=== PATIENT | male | born 1965 | race African-American/Black ===

== ENCOUNTER 2016-12-28 14:02 | Inpatient (IN) | payer OTHER ==
[2016-12-28 16:27] VITALS: BMI 21.2
--- NOTE | 2016-12-28 17:25 | HP ---
CIWA Score - CIWA Score Nausea/Vomitin Muscle Tremors: 3 Anxiety: 3 Agitation: 3 Paroxysmal Sweats: 2 Orientation: 0-Oriented Tacttile Disturbances: 2-Mild Itch/Numbness/Burn Auditory Disturbances: 2-Mild Harshness/Frighten Visual Disturbances: 2-Mild Sensitivity Headache: 2-Mild CIWA-Ar Total Score: 22 Admission ROS BHS - HPI Chief Complaint: I NEED HELP TO STOP DRINKING ALCOHOL AND COCAINE Allergies/Adverse Reactions: Allergies Allergy/AdvReac Type Severity Reaction Status Date / Time No Known Allergies Allergy Verified 12/28/16 17:08 History of Present Illness: THIS 51 YEARS OLD MALE WITH ALCOHOL AND COCAINE DEPENDENCE,SEEKING DETOX,LAST TREATMENT 2015 ARM AND ACRES LOW BACK PAIN WEIGHT LOSS DEPRESSION NICOTINE EPENDENCE LONGEST PERIOD OF SOBRIETY 5 YEARS Exam Limitations: No Limitations - Ebola screening Have you traveled outside of the country in the last 21 days: No Have you been sick,other than usual withdrawal symptoms: No - Review of Systems Constitutional: Chills, Loss of Appetite, Malaise, Night Sweats, Changes in sleep, Weakness, Unintentional Wgt. Loss EENT: reports: Tearing, Nose Congestion Respiratory: reports: No Symptoms reported Cardiac: reports: No Symptoms Reported GI: reports: Diarrhea, Nausea, Vomiting, Abdominal cramping : reports: No Symptoms Reported Musculoskeletal: reports: Back Pain, Joint Pain, Muscle Pain, Joint Stiffness Integumentary: reports: Dryness Neuro: reports: Headache, Tremors Endocrine: reports: No Symptoms Reported Hematology: reports: No Symptoms Reported Psychiatric: reports: Depressed Patient History - Patient Medical History Hx Anemia: No Hx Asthma: No Hx Chronic Obstructive Pulmonary Disease (COPD): No Hx Cancer: No Hx Cardiac Disorders: No Hx Congestive Heart Failure: No Hx Hypertension: No Hx Hypercholesterolemia: No Hx Pacemaker: No HX Cerebrovascular Accident: No Hx Seizures: No Hx Diabetes: No Hx Gastrointestinal Disorders: No Hx Liver Disease: No Hx Genitourinary Disorders: No Hx Sexually Transmitted Disorders: Yes (Hx of gonnorhea.) Hx Renal Disease (ESRD): No Hx Thyroid Disease: No Hx Human Immunodeficiency Virus (HIV): No (LAST 2015) Hx Hepatitis C: No Hx Depression: Yes (NO MED) Hx Suicide Attempt: No Hx Bipolar Disorder: No Hx Schizophrenia: No Other Medical History: NO SUICIDAL,NO HOMICIDAL,FX OF RIGHT LEG - Patient Surgical History Past Surgical History: No - PPD History Previous Implant?: Yes Documented Results: Positive w/o proof Implanted On Prior [facility] Admission?: No PPD to be Administered?: No - Smoking Cessation Smoking history: Current some day smoker Have you smoked in the past 12 months: Yes Aproximately how many cigarettes per day: 20 Hx Chewing Tobacco Use: No Initiated information on smoking cessation: Yes 'Breaking Loose' booklet given: 12/28/16 - Substance & Tx. History Hx Alcohol Use: Yes Hx Substance Use: Yes Substance Use Type: Alcohol, Cocaine Hx Substance Use Treatment: Yes (LAST TREATMENT 2016 ARMS AND ACRES) - Substances Abused Alcohol Route: Oral Frequency: Daily Amount used: 2-3 PINTS Age of first use: 16 Date of Last Use: 12/27/16 Crack Route: Smoking Frequency: Daily Amount used: $150 Age of first use: 29 Date of Last Use: 12/26/16 Family Disease History - Family Disease History Family History: Denies Admission Physical Exam BHS - Vital Signs Vital Signs: Vital Signs - 24 hr 12/28/16 16:25 Temperature 97.3 F L Pulse Rate 66 Respiratory 20 Rate Blood Pressure 106/62 - Physical General Appearance: Yes: Moderate Distress, Tremorous, Irritable, Sweating, Anxious HEENTM: Yes: Normal ENT Inspection, [place], Pharynx Normal Respiratory: Yes: Lungs Clear, Normal Breath Sounds, No Respiratory Distress Neck: Yes: Within Normal Limits, Supple, Trachea in good position Breast: Yes: Within Normal Limits Cardiology: Yes: Within Normal Limits, Regular Rhythm, Regular Rate, S1, S2 Abdominal: Yes: Within Normal Limits, Normal Bowel Sounds, Non Tender, Flat, Soft Genitourinary: Yes: Within Normal Limits Back: Yes: Muscle Spasm Musculoskeletal: Yes: Back pain, Joint Stiffness, Muscle Pain Extremities: Yes: Within Normal Limits, Normal Range of Motion, Tremors Neurological: Yes: ballpoint pens assembler II-XII NML intact, Fully Oriented, Motor Strength 5/5 Integumentary: Yes: Dry Lymphatic: Yes: Within Normal Limits - Diagnostic (1) Alcohol dependence with uncomplicated withdrawal Current Visit: Yes Status: Chronic (2) Cocaine dependence Current Visit: Yes Status: Chronic Qualifiers: Substance use status: uncomplicated Qualified Code(s): F14.20 - Cocaine dependence, uncomplicated; F14.20 - Cocaine dependence, uncomplicated; F14.20 - Cocaine dependence, uncomplicated (3) Weight loss Current Visit: Yes Status: Acute (4) Low back pain Current Visit: Yes Status: Chronic Qualifiers: Chronicity: chronic Back pain laterality: unspecified (5) Fracture of right lower leg Current Visit: Yes Status: Resolved (6) Depression Current Visit: Yes Status: Acute Cleared for Admission S - Detox or Rehab [facility] Level of Care: Medically Managed Detox Regimen/Protocol: Librium S Breath Alcohol Content Breath Alcohol Content: 0 Urine Drug Screen - Results Drug Screen Negative: No Urine Drug Screen Results: HAMZAH-Cocaine
[2016-12-28] MEDS ORDERED: chlordiazePOXIDE HCL 25 MG CAPSULE PO ONE (17:36)
[2016-12-28] MEDS ORDERED: guaiFENesin/D-METHORPHAN HB 10 ML UNIT-DOSE CUPS PO PRN (17:36)
[2016-12-28] MEDS ORDERED: hydrOXYzine PAMOATE 25 MG CAPSULE (FP) PO PRN (17:36)
[2016-12-28] MEDS ORDERED: diphenhydrAMINE HCL 50 MG CAPSULE PO PRN (17:36)
[2016-12-28] MEDS ORDERED: MAGNESIUM CITRATE 300 ML BOTTLE PO PRN (17:36)
[2016-12-28] MEDS ORDERED: LOPERAMIDE HCL 2 MG CAPSULE PO PRN (17:36)
[2016-12-28] MEDS ORDERED: P-EPHED 60MG/TRIPROLIDI 2.5MG TABLET PO PRN (17:36)
[2016-12-28] MEDS ORDERED: MAGNESIUM HYDROX 2400MG/30ML ORAL SUSPENSION 30 ML CUP PO PRN (17:36)
[2016-12-28] MEDS ORDERED: ACETAMINOPHEN 325 MG TABLET (FP) PO PRN (17:36)
[2016-12-28] MEDS ORDERED: chlordiazePOXIDE HCL 25 MG CAPSULE PO PRN (17:36)
[2016-12-28] MEDS ORDERED: IBUPROFEN 400 MG TABLET (FP) PO PRN (17:36)
[2016-12-28 20:55] LABS: URINE APPEARANCE CLEAR; URINE BILIRUBIN NEGATIVE (NEGATIVE); URINE BLOOD NEGATIVE (NEGATIVE); URINE COLOR AMBER; URINE GLUCOSE (UA) NEGATIVE (NEGATIVE); URINE KETONE NEGATIVE (NEGATIVE); URINE LEUK ESTERASE NEGATIVE (NEGATIVE); URINE NITRITE NEGATIVE (NEGATIVE); URINE UROBILINOGEN 4.0 E.U/dl mg/dL (0.2-1.0)
[2016-12-28 20:59] LABS: URINE PROTEIN 1+ (NEGATIVE)
[2016-12-28 21:08] LABS: URINE RBC 1 /hpf (0-3); URINE WBC 3 /hpf (3-5)
[2016-12-28] MEDS: MAG HYDROX/AL HYDROX/SIMETH 30 ML UNIT-DOSE CUP PO PRN (22:35)
[2016-12-28] MEDS: THIAMINE HCL 100 MG TABLET (FP) PO SCH (22:35)
[2016-12-28] MEDS: chlordiazePOXIDE HCL 25 MG CAPSULE PO SCH (22:35)
[2016-12-29] MEDS: chlordiazePOXIDE HCL 25 MG CAPSULE PO SCH ×4 (05:49→22:22)
[2016-12-29 10:10] LABS: MCH 25.3 pg (25.7-33.7); MCHC 33.6 g/dl (32.0-35.9); MEAN CELL VOLUME 75.2 fl (80-96); RDW 15.1 % (11.9-15.9)
--- NOTE | 2016-12-29 10:18 | PN ---
[facility] CIWA - CIWA Score Nausea/Vomitin-No Nausea/No Vomiting Muscle Tremors: 4-Moderate,w/Arms Extend Anxiety: 3 Agitation: 4-Moderately Restless Paroxysmal Sweats: 3 Orientation: 0-Oriented Tacttile Disturbances: 0-None Auditory Disturbances: 0-None Visual Disturbances: 0-None Headache: 0-None Present CIWA-Ar Total Score: 14 BHS Progress Note (SOAP) Subjective: sweats shakes interrupted sleep sore throat d/t vomiting yesterday Objective: 12/29/16 10:20 Vital Signs Temperature 98.0 12/29/16 10:00 Pulse Rate 87 12/29/16 10:00 Respiratory Rate 20 12/29/16 10:00 Blood Pressure 123/70 12/29/16 10:00 O2 Sat by Pulse Oximetry (%) Laboratory Tests 12/28/16 18:48 Urine Color Yadira Urine Appearance Clear Urine pH 6.0 Ur Specific [place] 1.020 Urine Protein 1+ H Urine Glucose (UA) Negative Urine Ketones Negative Urine Blood Negative Urine Nitrite Negative Urine Bilirubin Negative Urine Urobilinogen 4.0 e.u/dl Urine RBC 1 Urine WBC 3 Ur Epithelial Cells Rare labs pending awake/alert ambulating no acute distress Assessment: 12/29/16 10:22 withdrawal sx saundra throat noted Plan: continue detox increase fluids throat lozenges
[2016-12-29] MEDS: PRENATAL VITAMINS W/ FOLIC ACID TABLET (FP) PO SCH (10:21)
[2016-12-29] MEDS: MENTHOL/PHENOL 1 EACH UD MM PRN ×2 (10:24→22:22)
[2016-12-29 10:29] LABS: MEAN PLT VOLUME 8.8 fl (7.5-11.1)
--- NOTE | 2016-12-29 11:10 | CONSULT ---
[facility] Psychiatric Consult - Data Date of interview: 12/29/16 Admission source: [facility] Identifying data: The pstient is 51 years old AA single undomiciled male supported by PA is seeking alcohol and cocaine detox. Substance Abuse History: Patient reports drinking since 16 years old 2-3 six packs daily,coacine/crack since 29 years old,spending $100 daily. Medical History: Significant for low back pain,h/o L leg fracture. Psychiatric History: patient reports history of depression,anxiety for about 20 years.He was dx with MDD a few years ago.Denies any suicidality,no previous psychiatric admissions.No recent psychiatric follow up.He stopped taking zoloft which he found being very helpful in the past.Reports feeling depressed and willing to restart zoloft 50 mg po daily . Physical/Sexual Abuse/Trauma History: denies Mental Status Exam - Mental Status Exam Alert and Oriented to: Time, Place, Person Cognitive Function: Grossly Intact Patient Appearance: Unkempt Mood: Sad Affect: Mood Congruent, Constricted Patient Behavior: Appropriate, Cooperative Speech Pattern: Clear Voice Loudness: Normal Thought Process: Goal Oriented Thought Disorder: Not Present Hallucinations: Denies Suicidal Ideation: Denies Homicidal Ideation: Denies Insight/Judgement: Fair Sleep: Fair Appetite: Fair Muscle strength/Tone: Normal Gait/Station: Normal Psychiatric Findings - Problem List ([place] 1, 2,3) (1) Fracture of right lower leg Current Visit: Yes Status: Resolved (2) Low back pain Current Visit: Yes Status: Chronic Qualifiers: Chronicity: chronic Back pain laterality: unspecified (3) Alcohol dependence with uncomplicated withdrawal Current Visit: Yes Status: Chronic (4) Cocaine dependence Current Visit: Yes Status: Chronic Qualifiers: Substance use status: uncomplicated Qualified Code(s): F14.20 - Cocaine dependence, uncomplicated; F14.20 - Cocaine dependence, uncomplicated; F14.20 - Cocaine dependence, uncomplicated (5) Substance induced mood disorder Current Visit: Yes Status: Chronic - Initial Treatment Plan Initial Treatment Plan: Restart zoloft 50 mg po daily. will monitor progress.
[2016-12-29 11:22] LABS: ALBUMIN 3.2 g/dl (3.4-5.0); ALK PHOS 104 U/L (45-117); ANION GAP 7 (8-16); BILIRUBIN,TOTAL 0.5 mg/dL (0.2-1.0); CALCIUM 7.9 mg/dL (8.5-10.1); CO2 30 mmol/L (21-32); CREATININE 1.2 mg/dL (0.7-1.3); GLUCOSE,RANDOM 81 mg/dL (74-106); SGOT/AST 28 U/L (15-37); SGPT/ALT 28 U/L (12-78); TOT PROT 6.2 g/dl (6.4-8.2)
[2016-12-29 11:49] LABS: HIV 1 & 2 AB NEGATIVE; HIV 1 AGp24 NEGATIVE
[2016-12-29] MEDS: SERTRALINE HCL 50 MG TABLET (FP) PO SCH (13:02)
[2016-12-29 13:05] LABS: PLATELET COUNT 230 K/MM3 (134-434)
[2016-12-29 13:06] LABS: MICROCYTOSIS 4+; OVALOCYTE 4+; PLATELET ESTIMATE ADEQUATE (NORMAL); SCHISTOCYTES 2+; SPHEROCYTE 1+; TEAR DROP CELLS 2+
--- NOTE | 2016-12-29 14:22 | EKG ---
Test Reason : Blood Pressure : / mmHG Vent. Rate : 068 BPM Atrial Rate : 068 BPM P-R Int : 158 ms QRS Dur : 084 ms QT Int : 360 ms P-R-T Axes : 075 063 070 degrees QTc Int : 382 ms NORMAL SINUS RHYTHM SEPTAL INFARCT , AGE UNDETERMINED T WAVE ABNORMALITY, CONSIDER ANTEROLATERAL ISCHEMIA ABNORMAL ECG NO PREVIOUS ECGS AVAILABLE Confirmed by MICHELLE ZACARIAS MD ([id number]) on 12/29/2016 2:22:34 PM Referred By: Confirmed By:MICHELLE ZACARIAS MD
[2016-12-29] MEDS: THIAMINE HCL 100 MG TABLET (FP) PO SCH (22:23)
[2016-12-30] MEDS: chlordiazePOXIDE HCL 25 MG CAPSULE PO SCH ×3 (05:09→18:30)
[2016-12-30] MEDS: MENTHOL/PHENOL 1 EACH UD MM PRN ×2 (05:09→22:20)
[2016-12-30] MEDS: PRENATAL VITAMINS W/ FOLIC ACID TABLET (FP) PO SCH (10:09)
[2016-12-30] MEDS: SERTRALINE HCL 50 MG TABLET (FP) PO SCH (10:10)
[2016-12-30] MEDS ORDERED: NICOTINE POLACRILEX 4 MG GUM BUC PRN (10:56)
--- NOTE | 2016-12-30 11:14 | PN ---
[facility] CIWA - CIWA Score Nausea/Vomitin-No Nausea/No Vomiting Muscle Tremors: 4-Moderate,w/Arms Extend Anxiety: 4-Mod. Anxious/Guarded Agitation: 4-Moderately Restless Paroxysmal Sweats: 3 Orientation: 0-Oriented Tacttile Disturbances: 0-None Auditory Disturbances: 0-None Visual Disturbances: 0-None Headache: 0-None Present CIWA-Ar Total Score: 15 BHS Progress Note (SOAP) Subjective: i want nicotine gum sweats anxiety Objective: 12/30/16 11:01 Vital Signs Temperature 99 F 12/30/16 10:00 Pulse Rate 92 H 12/30/16 10:00 Respiratory Rate 18 12/30/16 10:00 Blood Pressure 128/71 12/30/16 10:00 O2 Sat by Pulse Oximetry (%) Laboratory Tests 12/28/16 12/29/16 12/29/16 18:48 07:00 07:00 WBC 4.0 RBC 4.27 Hgb 10.8 L Hct 32.1 L MCV 75.2 L MCH 25.3 L MCHC 33.6 RDW 15.1 Plt Count 230 MPV 8.8 Platelet Estimate Adequate Platelet Comment Few large plts Microcytosis 4+ Spherocytes 1+ Tear Drop Cells 2+ Ovalocytes 4+ Schistocytes 2+ Sodium Potassium Chloride Carbon Dioxide Anion Gap BUN Creatinine Creat Clearance w eGFR Random Glucose Calcium Total Bilirubin AST ALT Alkaline Phosphatase Total Protein Albumin Urine Color Yadira Urine Appearance Clear Urine pH 6.0 Ur Specific [place] 1.020 Urine Protein 1+ H Urine Glucose (UA) Negative Urine Ketones Negative Urine Blood Negative Urine Nitrite Negative Urine Bilirubin Negative Urine Urobilinogen 4.0 e.u/dl Urine RBC 1 Urine WBC 3 Ur Epithelial Cells Rare RPR Titer HIV 1&2 Antibody Screen Negative HIV P24 Antigen Negative 12/29/16 12/29/16 07:00 07:00 WBC RBC Hgb Hct MCV MCH MCHC RDW Plt Count MPV Platelet Estimate Platelet Comment Microcytosis Spherocytes Tear Drop Cells Ovalocytes Schistocytes Sodium 139 Potassium 3.7 Chloride 102 Carbon Dioxide 30 Anion Gap 7 L BUN 11 Creatinine 1.2 Creat Clearance w eGFR > 60 Random Glucose 81 Calcium 7.9 L Total Bilirubin 0.5 AST 28 ALT 28 Alkaline Phosphatase 104 Total Protein 6.2 L Albumin 3.2 L Urine Color Urine Appearance Urine pH Ur Specific [place] Urine Protein Urine Glucose (UA) Urine Ketones Urine Blood Urine Nitrite Urine Bilirubin Urine Urobilinogen Urine RBC Urine WBC Ur Epithelial Cells RPR Titer Nonreactive HIV 1&2 Antibody Screen HIV P24 Antigen AAOx3 ambulating no acute distress low H:H; iron supplement tid ordered Assessment: 12/30/16 11:14 withdrawal sx Plan: continue detox increase fluids iron sulfate tid ordered nicotine gum 4mg ordered
[2016-12-30] MEDS: FERROUS SO4 325 MG TABLET (FP) PO SCH ×2 (12:08→18:30)
[2016-12-30] MEDS: MAG HYDROX/AL HYDROX/SIMETH 30 ML UNIT-DOSE CUP PO PRN (14:43)
[2016-12-30] MEDS: THIAMINE HCL 100 MG TABLET (FP) PO SCH (22:18)
[2016-12-30] MEDS: chlordiazePOXIDE 5 MG CAPSULE PO SCH (22:18)
[2016-12-31] MEDS: chlordiazePOXIDE 5 MG CAPSULE PO SCH ×3 (05:37→17:23)
[2016-12-31] MEDS: MENTHOL/PHENOL 1 EACH UD MM PRN (05:39)
[2016-12-31] MEDS: FERROUS SO4 325 MG TABLET (FP) PO SCH ×3 (08:35→17:23)
[2016-12-31] MEDS: SERTRALINE HCL 50 MG TABLET (FP) PO SCH (10:33)
[2016-12-31] MEDS: PRENATAL VITAMINS W/ FOLIC ACID TABLET (FP) PO SCH (10:33)
[2016-12-31] MEDS: MAG HYDROX/AL HYDROX/SIMETH 30 ML UNIT-DOSE CUP PO PRN (13:35)
--- NOTE | 2016-12-31 14:30 | PN ---
BHS Progress Note (SOAP) Subjective: Sweating,interrupted sleep,restless. Objective: 12/31/16 14:27 Vital Signs - 8 hr 12/31/16 12/31/16 10:00 14:06 Temperature 97.3 F L 97.9 F Pulse Rate 80 80 Respiratory 18 18 Rate Blood Pressure 111/58 114/67 Laboratory Last Values WBC 4.0 K/mm3 (4.0-10.0) 12/29/16 07:00 RBC 4.27 M/mm3 (4.00-5.60) 12/29/16 07:00 Hgb 10.8 GM/dL (11.7-16.9) L 12/29/16 07:00 Hct 32.1 % (35.4-49) L 12/29/16 07:00 MCV 75.2 fl (80-96) L 12/29/16 07:00 MCH 25.3 pg (25.7-33.7) L 12/29/16 07:00 MCHC 33.6 g/dl (32.0-35.9) 12/29/16 07:00 RDW 15.1 % (11.9-15.9) 12/29/16 07:00 Plt Count 230 K/MM3 (134-434) 12/29/16 07:00 MPV 8.8 fl (7.5-11.1) 12/29/16 07:00 Platelet Estimate Adequate (NORMAL) 12/29/16 07:00 Platelet Comment Few large plts 12/29/16 07:00 Microcytosis 4+ 12/29/16 07:00 Spherocytes 1+ 12/29/16 07:00 Tear Drop Cells 2+ 12/29/16 07:00 Ovalocytes 4+ 12/29/16 07:00 Schistocytes 2+ 12/29/16 07:00 Sodium 139 mmol/L (136-145) 12/29/16 07:00 Potassium 3.7 mmol/L (3.5-5.1) 12/29/16 07:00 Chloride 102 mmol/L (98-107) 12/29/16 07:00 Carbon Dioxide 30 mmol/L (21-32) 12/29/16 07:00 Anion Gap 7 (8-16) L 12/29/16 07:00 BUN 11 mg/dL (7-18) 12/29/16 07:00 Creatinine 1.2 mg/dL (0.7-1.3) 12/29/16 07:00 Creat Clearance w eGFR > 60 (>60) 12/29/16 07:00 Random Glucose 81 mg/dL (74-106) 12/29/16 07:00 Calcium 7.9 mg/dL (8.5-10.1) L 12/29/16 07:00 Total Bilirubin 0.5 mg/dL (0.2-1.0) 12/29/16 07:00 AST 28 U/L (15-37) 12/29/16 07:00 ALT 28 U/L (12-78) 12/29/16 07:00 Alkaline Phosphatase 104 U/L (45-117) 12/29/16 07:00 Total Protein 6.2 g/dl (6.4-8.2) L 12/29/16 07:00 Albumin 3.2 g/dl (3.4-5.0) L 12/29/16 07:00 Urine Color Yadira 12/28/16 18:48 Urine Appearance Clear 12/28/16 18:48 Urine pH 6.0 (5.0-8.0) 12/28/16 18:48 Ur Specific [place] 1.020 (1.005-1.025) 12/28/16 18:48 Urine Protein 1+ (NEGATIVE) H 12/28/16 18:48 Urine Glucose (UA) Negative (NEGATIVE) 12/28/16 18:48 Urine Ketones Negative (NEGATIVE) 12/28/16 18:48 Urine Blood Negative (NEGATIVE) 12/28/16 18:48 Urine Nitrite Negative (NEGATIVE) 12/28/16 18:48 Urine Bilirubin Negative (NEGATIVE) 12/28/16 18:48 Urine Urobilinogen 4.0 e.u/dl mg/dL (0.2-1.0) 12/28/16 18:48 Urine RBC 1 /hpf (0-3) 12/28/16 18:48 Urine WBC 3 /hpf (3-5) 12/28/16 18:48 Ur Epithelial Cells Rare /hpf (FEW) 12/28/16 18:48 RPR Titer Nonreactive (NONREACTIVE) 12/29/16 07:00 HIV 1&2 Antibody Screen Negative 12/29/16 07:00 HIV P24 Antigen Negative 12/29/16 07:00 labs noted Assessment: 12/31/16 14:28 Withdrawal sx. Anemia Plan: Continue detox
[2016-12-31 17:42] VITALS: BP 108/58; PULSE 76; TEMP 98.1
[2016-12-31] MEDS ORDERED: chlordiazePOXIDE HCL 10 MG CAPSULE PO SCH (23:00)
--- NOTE | 2017-01-24 13:04 | DS ---
[facility] Detox Discharge Summary Admission Date: 12/28/16 Discharge Date: 12/31/16 - History Present History: Alcohol Dependence, Cocaine Dependence Additional Comments: left when he found out no rehab bed available Pertinent Past History: anxiety, depression , insomnia, nicotine dependence - Physical Exam Results Vital Signs: Vital Signs Temperature 98.1 F 12/31/16 17:41 Pulse Rate 76 12/31/16 17:41 Respiratory Rate 18 12/31/16 17:41 Blood Pressure 108/58 12/31/16 17:41 O2 Sat by Pulse Oximetry (%) Pertinent Admission Physical Exam Findings: withdrawal sx - Treatment Hospital Course: Detox Protocol Followed Patient has Accepted a Rehab Referral to: Yes - Medication Discharge Medications: Ambulatory Orders Sertraline HCl [Zoloft -] 50 mg PO DAILY #30 tablet 12/29/16 - Diagnosis (1) Depression Status: Acute (2) Alcohol dependence with uncomplicated withdrawal Status: Acute (3) Cocaine dependence Status: Acute Qualifiers: Substance use status: uncomplicated Qualified Code(s): F14.20 - Cocaine dependence, uncomplicated; F14.20 - Cocaine dependence, uncomplicated; F14.20 - Cocaine dependence, uncomplicated (4) Low back pain Status: Chronic Qualifiers: Chronicity: chronic Back pain laterality: unspecified (5) Substance induced mood disorder Status: Chronic - AMA Did Patient Leave Against Medical Advice: Yes
== END 2016-12-31 19:20 | disposition left against medical advice (07) | DRG 770 ==
LOC: YASAS 14:02 → Y6N 17:45
PROVIDERS: ADMIT Internal Medicine; ATTEND Internal Medicine
PROC: HZ2ZZZZ Detoxification Services for Substance Abuse Treatment (ICD-10-PCS; principal; 2016-12-28)
DX: F10.230 Alcohol dependence with withdrawal, uncomplicated (principal); F14.20 Cocaine dependence, uncomplicated; F17.210 Nicotine dependence, cigarettes, uncomplicated; F32.9 Major depressive disorder, single episode, unspecified; F19.24 Other psychoactive substance dependence with psychoactive substance-induced mood disorder; D64.9 Anemia, unspecified; M54.5 Low back pain; G89.29 Other chronic pain; Z87.81 Personal history of (healed) traumatic fracture; Z87.438 Personal history of other diseases of male genital organs; Z87.898 Personal history of other specified conditions; Z59.0 Homelessness
CPT/HCPCS: 36415; 71020-TC; 80053; 81003; 81015; 85027; 86593; 87389; 93005; 93010

== ENCOUNTER 2018-04-12 13:23 | Inpatient (IN) | payer OTHER ==
[2018-04-12 14:40] VITALS: BMI 23.1
--- NOTE | 2018-04-12 16:03 | HP ---
CIWA Score Nausea/Vomitin Muscle Tremors: 4-Moderate,w/Arms Extend Anxiety: 4-Mod. Anxious/Guarded Agitation: 0-Normal Activity Paroxysmal Sweats: No Perspiration Orientation: 0-Oriented Tacttile Disturbances: 0-None Auditory Disturbances: 2-Mild Harshness/Frighten Visual Disturbances: 0-None Headache: 0-None Present CIWA-Ar Total Score: 13 - Admission Criteria [facility] Guidelines: Admission for Medically Managed Detox: Requires at least one of the followin. CIWA greater than 12 2. Seizures within the past 24 hours 3. Delirium tremens within the past 24 hours 4. Hallucinations within the past 24 hours 5. Acute intervention needed for co occurring medical disorder 6. Acute intervention needed for co occurring psychiatric disorder 7. Severe withdrawal that cannot be handled at a lower level of care (continued vomiting, continued diarrhea, abnormal vital signs) requiring intravenous medication and/or fluids 8. Patient presents the following: CIWA greater than 12 Admission Criteria Met: Admission criteria met Admission ROS BHS - HPI Allergies/Adverse Reactions: Allergies Allergy/AdvReac Type Severity Reaction Status Date / Time No Known Allergies Allergy Verified 04/12/18 15:23 History of Present Illness: patient here requesting detox from etoh use , reports 1x 6-pk /day and 1 pint liquor x 20 years, with intermittent sobriety , longest 5 years participating in programs , most recent relapse x 2 years , current symptoms as above . Denies seizures, blackouts, + tremors , + starts drinking in the mornings " when the liquor store opens " . Prior admissions at this facility , cocaine : 70-100 $ " or more " x 20 years via inhalation tobacco : 03/30 -03/28 ppd denies othr illicits . PMHX :depression , anemia Denies SI / HI PSHX : denies Meds : Fe SO4. SHx : homeless , unemployed , finances habit through " husthling " Exam Limitations: No Limitations - Ebola screening Have you traveled outside of the country in the last 21 days: No Have you had contact with anyone from an Ebola affected area: No Have you been sick,other than usual withdrawal symptoms: No Do you have a fever: No - Review of Systems Constitutional: See HPI EENT: reports: Other (glasses , denies dysphagia) Respiratory: reports: No Symptoms reported Cardiac: reports: No Symptoms Reported GI: reports: Diarrhea : reports: Urgency (states he was supposed to see urology , did not follow up) Musculoskeletal: reports: Joint Stiffness (left shoulder denies recent injury) Integumentary: reports: No Symptoms Reported Neuro: reports: See HPI Endocrine: reports: No Symptoms Reported Hematology: reports: Anemia Psychiatric: reports: Orientated x3, Depressed Patient History - Patient Medical History Hx Anemia: No Hx Asthma: No Hx Chronic Obstructive Pulmonary Disease (COPD): No Hx Cancer: No Hx Cardiac Disorders: No Hx Congestive Heart Failure: No Hx Hypertension: No Hx Hypercholesterolemia: No Hx Pacemaker: No HX Cerebrovascular Accident: No Hx Seizures: No Hx Diabetes: No Hx Gastrointestinal Disorders: No Hx Liver Disease: No Hx Genitourinary Disorders: No Hx Sexually Transmitted Disorders: No Hx Renal Disease (ESRD): No Hx Thyroid Disease: No Hx Human Immunodeficiency Virus (HIV): No (LAST 2015) Hx Hepatitis C: No Hx Depression: Yes Hx Suicide Attempt: No Hx Bipolar Disorder: No Hx Schizophrenia: No - Patient Surgical History Past Surgical History: No Hx Neurologic Surgery: No Hx Cataract Extraction: No Hx Cardiac Surgery: No Hx Lung Surgery: No Hx Breast Surgery: No Hx Breast Biopsy: No Hx Abdominal Surgery: No Hx Appendectomy: No Hx Cholecystectomy: No Hx Genitourinary Surgery: No Hx Section: No Hx Orthopedic Surgery: No Anesthesia Reaction: No - PPD History Previous Implant?: Yes Documented Results: Positive w/o proof - Smoking Cessation Smoking history: Current some day smoker Have you smoked in the past 12 months: Yes Aproximately how many cigarettes per day: 20 Hx Chewing Tobacco Use: No Initiated information on smoking cessation: No - Substances Abused Crack Route: Smoking Frequency: Daily Amount used: $100 Age of first use: 29 Date of Last Use: 04/11/18 Alcohol-beer/vodka Route: Oral Frequency: Daily Amount used: 1-6 pk./2 pts. Age of first use: 11 Date of Last Use: 04/11/18 Family Disease History - Family Disease History Family History: Denies Admission Physical Exam BHS - Vital Signs Vital Signs: Vital Signs - 24 hr 04/12/18 14:38 Temperature 96.0 F L Pulse Rate 69 Respiratory 18 Rate Blood Pressure 110/67 - Physical General Appearance: Yes: Disheveled, Moderate Distress, Irritable, Anxious HEENTM: Yes: EOMI, Hearing grossly Normal, Normocephalic, Normal Voice Respiratory: Yes: Chest Non-Tender, Lungs Clear, Normal Breath Sounds Neck: Yes: No masses,lesions,Nodules, Trachea in good position Breast: Yes: Breast Exam Deferred Cardiology: Yes: Regular Rhythm, Regular Rate, S1, S2 Abdominal: Yes: Normal Bowel Sounds, Non Tender, Soft Genitourinary: Yes: Within Normal Limits Back: Yes: Normal Inspection Musculoskeletal: Yes: full range of Motion, Gait Steady Extremities: Yes: Normal Capillary Refill, Non-Tender, Tremors Neurological: Yes: Motor Strength 5/5, Normal Mood/Affect Integumentary: Yes: Normal Color, Dry, Warm - Diagnostic (1) Alcohol dependence with uncomplicated withdrawal Current Visit: No Status: Acute (2) Cocaine dependence Current Visit: No Status: Chronic Qualifiers: Substance use status: uncomplicated Qualified Code(s): F14.20 - Cocaine dependence, uncomplicated (3) Nicotine dependence Current Visit: Yes Status: Chronic Qualifiers: Nicotine product type: cigarettes BHS Breath Alcohol Content Breath Alcohol Content: 0 Urine Drug Screen - Results Drug Screen Negative: Yes Urine Drug Screen Results: HAMZAH-Cocaine
[2018-04-12] MEDS ORDERED: guaiFENesin/D-METHORPHAN HB 10 ML UNIT-DOSE CUPS PO PRN (16:10)
[2018-04-12] MEDS ORDERED: MAGNESIUM HYDROX 2400MG/30ML ORAL SUSPENSION 30 ML CUP PO PRN (16:10)
[2018-04-12] MEDS ORDERED: ACETAMINOPHEN 325 MG TABLET (FP) PO PRN (16:10)
[2018-04-12] MEDS ORDERED: MENTHOL/PHENOL 1 EACH UD MM PRN (16:10)
[2018-04-12] MEDS ORDERED: IBUPROFEN 400 MG TABLET (FP) PO PRN (16:10)
[2018-04-12] MEDS ORDERED: P-EPHED 60MG/TRIPROLIDI 2.5MG TABLET PO PRN (16:10)
[2018-04-12] MEDS ORDERED: diazePAM 5 MG TABLET PO PRN (16:10)
[2018-04-12] MEDS ORDERED: MAGNESIUM CITRATE 300 ML BOTTLE PO PRN (16:10)
[2018-04-12] MEDS ORDERED: NICOTINE POLACRILEX 2 MG GUM BC PRN (16:10)
[2018-04-12] MEDS ORDERED: MAG HYDROX/AL HYDROX/SIMETH 30 ML UNIT-DOSE CUP PO PRN (16:10)
[2018-04-12] MEDS: FERROUS SO4 325 MG TABLET (FP) PO SCH (18:10)
[2018-04-12] MEDS ORDERED: MELATONIN 5 MG TABLETS PO PRN (22:00)
[2018-04-12] MEDS: diazePAM 5 MG TABLET PO SCH (22:33)
[2018-04-12] MEDS: THIAMINE HCL 100 MG TABLET (FP) PO SCH (22:33)
[2018-04-13] MEDS: diazePAM 5 MG TABLET PO SCH ×3 (06:13→22:41)
[2018-04-13] MEDS: FERROUS SO4 325 MG TABLET (FP) PO SCH (07:48)
[2018-04-13 10:02] LABS: HEMOGLOBIN 10.3 GM/dL (11.7-16.9); MCH 24.3 pg (25.7-33.7); MCHC 32.3 g/dl (32.0-35.9); MEAN CELL VOLUME 75.2 fl (80-96); MEAN PLT VOLUME 8.7 fl (7.5-11.1); PLATELET COUNT 242 K/MM3 (134-434); RBC 4.26 M/mm3 (4.00-5.60); RDW 15.2 % (11.9-15.9); WHITE BLOOD COUNT 3.8 K/mm3 (4.0-10.0)
[2018-04-13 10:18] LABS: ALBUMIN 2.9 g/dl (3.4-5.0); ALK PHOS 74 U/L (45-117); ANION GAP 6 MMOL/L (8-16); BILIRUBIN,TOTAL 0.3 mg/dL (0.2-1); BLOOD UREA NITROGEN 16 mg/dL (7-18); CALCIUM 7.9 mg/dL (8.5-10.1); CHLORIDE 108 mmol/L (98-107); CO2 29 mmol/L (21-32); CREATININE 1.2 mg/dL (0.55-1.3); GLUCOSE,RANDOM 86 mg/dL (74-106); POTASSIUM 3.9 mmol/L (3.5-5.1); SGOT/AST 25 U/L (15-37); SGPT/ALT 32 U/L (13-61); SODIUM 144 mmol/L (136-145); TOT PROT 5.4 g/dl (6.4-8.2)
[2018-04-13] MEDS: PRENATAL VITAMINS W/ FOLIC ACID TABLET (FP) PO SCH (11:01)
[2018-04-13 11:34] LABS: ANISOCYTOSIS 1+; MACROCYTOSIS 0; OVALOCYTE 3+
--- NOTE | 2018-04-13 12:05 | PN ---
S CIWA - CIWA Score Nausea/Vomitin-No Nausea/No Vomiting Muscle Tremors: 3 Anxiety: 3 Agitation: 3 Paroxysmal Sweats: 3 Orientation: 0-Oriented Tacttile Disturbances: 0-None Auditory Disturbances: 0-None Visual Disturbances: 0-None Headache: 0-None Present CIWA-Ar Total Score: 12 BHS Progress Note (SOAP) Subjective: left should discomfort sweats irritable agitation Objective: 04/13/18 12:03 Vital Signs Temperature 98.0 F 04/13/18 09:56 Pulse Rate 74 04/13/18 09:56 Respiratory Rate 18 04/13/18 09:56 Blood Pressure 137/75 04/13/18 09:56 O2 Sat by Pulse Oximetry (%) Laboratory Tests 04/13/18 04/13/18 07:00 08:32 WBC 3.8 L RBC 4.26 Hgb 10.3 L Hct 32.0 L MCV 75.2 L MCH 24.3 L MCHC 32.3 RDW 15.2 Plt Count 242 MPV 8.7 Hypochromia 0 Polychromasia 0 Poikilocytosis 3+ Anisocytosis 1+ Microcytosis 1+ Macrocytosis 0 Ovalocytes 3+ Schistocytes 1+ Sodium 144 Potassium 3.9 Chloride 108 H Carbon Dioxide 29 Anion Gap 6 L BUN 16 Creatinine 1.2 Creat Clearance w eGFR > 60 Random Glucose 86 Calcium 7.9 L Total Bilirubin 0.3 AST 25 ALT 32 Alkaline Phosphatase 74 Total Protein 5.4 L Albumin 2.9 L aaox3 ambulating no acute distress Assessment: 04/13/18 12:04 withdrawal sx Plan: continue detox increase fluids analgesic balm ordered for shoulder discomfort
[2018-04-13] MEDS: METHYL SALICYLATE/MENTHOL OINT 30 GM TUBE TP SCH ×2 (14:50→22:41)
[2018-04-13] MEDS: THIAMINE HCL 100 MG TABLET (FP) PO SCH (22:40)
[2018-04-14] MEDS: METHYL SALICYLATE/MENTHOL OINT 30 GM TUBE TP SCH (10:32)
[2018-04-14] MEDS: PRENATAL VITAMINS W/ FOLIC ACID TABLET (FP) PO SCH (10:32)
[2018-04-14] MEDS: diazePAM 5 MG TABLET PO SCH ×2 (10:32→22:24)
[2018-04-14] MEDS: FERROUS SO4 325 MG TABLET (FP) PO SCH (10:32)
[2018-04-14] MEDS ORDERED: NAPROXEN 375 MG TABLET (FP) PO ONE (11:30)
[2018-04-14] MEDS: LIDOCAINE 5% TOPICAL PATCH TP SCH (12:51)
--- NOTE | 2018-04-14 14:38 | PN ---
[facility] CIWA - CIWA Score Nausea/Vomitin-No Nausea/No Vomiting Muscle Tremors: None Anxiety: 2 Agitation: 1-Slight > Activity Paroxysmal Sweats: 2 Orientation: 0-Oriented Tacttile Disturbances: 2-Mild Itch/Numbness/Burn Auditory Disturbances: 1-Very Mild Visual Disturbances: 2-Mild Sensitivity Headache: 0-None Present CIWA-Ar Total Score: 10 BHS Progress Note (SOAP) Subjective: Body Aches, Anxious, Sweating. Patient Reports Pain in Left Shoulder (Patient Points to Deltoid Musculature) X approx. 1 week. Patient Reports that Pain tends to occur primarily at night, is Sharp in Quality, and is 8/10 on Pain Scale on Average. Patient Denies any history of recent traumatic injury to Left Shoulder. Objective: PATIENT A & O X 3, OBSERVED AMBULATING ON UNIT. IN NO ACUTE DISTRESS. NO ERYTHEMA, SWELLING, OR UNUSUAL DISCHARGE NOTED IN LEFT SHOULDER. 04/14/18 14:33 Vital Signs Temperature 97.4 F L 04/14/18 13:48 Pulse Rate 62 04/14/18 13:48 Respiratory Rate 20 04/14/18 13:48 Blood Pressure 114/65 04/14/18 13:48 O2 Sat by Pulse Oximetry (%) Laboratory Tests 04/13/18 04/13/18 04/13/18 07:00 07:00 07:00 WBC RBC Hgb Hct MCV MCH MCHC RDW Plt Count MPV Hypochromia Polychromasia Poikilocytosis Anisocytosis Microcytosis Macrocytosis Ovalocytes Schistocytes Sodium 144 Potassium 3.9 Chloride 108 H Carbon Dioxide 29 Anion Gap 6 L BUN 16 Creatinine 1.2 Creat Clearance w eGFR > 60 Random Glucose 86 Calcium 7.9 L Total Bilirubin 0.3 AST 25 ALT 32 Alkaline Phosphatase 74 Total Protein 5.4 L Albumin 2.9 L RPR Titer Nonreactive HIV 1&2 Antibody Screen Negative HIV P24 Antigen Negative 04/13/18 08:32 WBC 3.8 L RBC 4.26 Hgb 10.3 L Hct 32.0 L MCV 75.2 L MCH 24.3 L MCHC 32.3 RDW 15.2 Plt Count 242 MPV 8.7 Hypochromia 0 Polychromasia 0 Poikilocytosis 3+ Anisocytosis 1+ Microcytosis 1+ Macrocytosis 0 Ovalocytes 3+ Schistocytes 1+ Sodium Potassium Chloride Carbon Dioxide Anion Gap BUN Creatinine Creat Clearance w eGFR Random Glucose Calcium Total Bilirubin AST ALT Alkaline Phosphatase Total Protein Albumin RPR Titer HIV 1&2 Antibody Screen HIV P24 Antigen LABS NOTED. Assessment: 04/14/18 14:36 WITHDRAWAL SYMPTOMS. ANEMIA (MICROCYTIC). PAIN IN LEFT SHOULDER. 04/14/18 14:39 Plan: CONTINUE DETOX. PRN IBUPROFEN FOR PAIN IN LEFT SHOULDER. X-RAY OF LET SHOULDER ORDERED FOR 04/17/2018 (NEXT TIME THAT [facility] RADIOLOGY DEPARTMENT IS OPEN).
[2018-04-14] MEDS: NAPROXEN 375 MG TABLET (FP) PO SCH (22:24)
[2018-04-14] MEDS: THIAMINE HCL 100 MG TABLET (FP) PO SCH (22:24)
[2018-04-14] MEDS: LIDOCAINE PATCH REMOVAL MC SCH (22:25)
[2018-04-15] MEDS: FERROUS SO4 325 MG TABLET (FP) PO SCH (07:00)
[2018-04-15] MEDS: diazePAM 5 MG TABLET PO SCH ×2 (10:01→22:21)
[2018-04-15] MEDS: NAPROXEN 375 MG TABLET (FP) PO SCH ×2 (10:01→22:21)
[2018-04-15] MEDS: PRENATAL VITAMINS W/ FOLIC ACID TABLET (FP) PO SCH (10:02)
[2018-04-15] MEDS: LIDOCAINE 5% TOPICAL PATCH TP SCH (10:02)
--- NOTE | 2018-04-15 15:55 | PN ---
[facility] Progress Note (SOAP) Subjective: Sweating, interrupted sleep Objective: 04/15/18 15:49 Last Vital Signs Temp Pulse Resp BP Pulse Ox 96.9 F L 66 18 118/90 04/15/18 14:26 04/15/18 14:26 04/15/18 14:26 04/15/18 14:26 Laboratory Tests 04/13/18 04/13/18 04/13/18 07:00 07:00 07:00 WBC RBC Hgb Hct MCV MCH MCHC RDW Plt Count MPV Hypochromia Polychromasia Poikilocytosis Anisocytosis Microcytosis Macrocytosis Ovalocytes Schistocytes Sodium 144 Potassium 3.9 Chloride 108 H Carbon Dioxide 29 Anion Gap 6 L BUN 16 Creatinine 1.2 Creat Clearance w eGFR > 60 Random Glucose 86 Calcium 7.9 L Total Bilirubin 0.3 AST 25 ALT 32 Alkaline Phosphatase 74 Total Protein 5.4 L Albumin 2.9 L RPR Titer Nonreactive HIV 1&2 Antibody Screen Negative HIV P24 Antigen Negative 04/13/18 08:32 WBC 3.8 L RBC 4.26 Hgb 10.3 L Hct 32.0 L MCV 75.2 L MCH 24.3 L MCHC 32.3 RDW 15.2 Plt Count 242 MPV 8.7 Hypochromia 0 Polychromasia 0 Poikilocytosis 3+ Anisocytosis 1+ Microcytosis 1+ Macrocytosis 0 Ovalocytes 3+ Schistocytes 1+ Sodium Potassium Chloride Carbon Dioxide Anion Gap BUN Creatinine Creat Clearance w eGFR Random Glucose Calcium Total Bilirubin AST ALT Alkaline Phosphatase Total Protein Albumin RPR Titer HIV 1&2 Antibody Screen HIV P24 Antigen Labs reviewed: anemia, on ferrous sulfate Assessment: 04/15/18 15:50 Withdrawal symptoms Noted with anemia Plan: Continue detox Encouraged PO water intake Anemia: continue ferrous sulfate, follow up with PCP for monitoring
[2018-04-15] MEDS: THIAMINE HCL 100 MG TABLET (FP) PO SCH (22:21)
[2018-04-15] MEDS: LIDOCAINE PATCH REMOVAL MC SCH (22:21)
[2018-04-16] MEDS: FERROUS SO4 325 MG TABLET (FP) PO SCH (07:33)
[2018-04-16] MEDS ORDERED: diazePAM 5 MG TABLET PO SCH (10:00)
[2018-04-16] MEDS: NAPROXEN 375 MG TABLET (FP) PO SCH ×2 (10:12→22:02)
[2018-04-16] MEDS: PRENATAL VITAMINS W/ FOLIC ACID TABLET (FP) PO SCH (10:12)
[2018-04-16] MEDS: LIDOCAINE 5% TOPICAL PATCH TP SCH (10:13)
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
[2018-04-16] MEDS: CALCIUM 250MG/VIT-D 125 UNITS 1 COMBO TABLET PO SCH ×2 (15:00→22:03)
[2018-04-16] MEDS: LIDOCAINE PATCH REMOVAL MC SCH (21:41)
[2018-04-16] MEDS: THIAMINE HCL 100 MG TABLET (FP) PO SCH (22:02)
[2018-04-17] MEDS: FERROUS SO4 325 MG TABLET (FP) PO SCH (07:41)
[2018-04-17] MEDS: NAPROXEN 375 MG TABLET (FP) PO SCH (10:18)
[2018-04-17] MEDS: LIDOCAINE 5% TOPICAL PATCH TP SCH (10:18)
[2018-04-17] MEDS: CALCIUM 250MG/VIT-D 125 UNITS 1 COMBO TABLET PO SCH (10:19)
[2018-04-17] MEDS: PRENATAL VITAMINS W/ FOLIC ACID TABLET (FP) PO SCH (10:19)
--- NOTE | 2018-04-17 11:05 | DS ---
[facility] Detox Discharge Summary Admission Date: 04/12/18 Discharge Date: 04/17/18 - History Present History: Alcohol Dependence Additional Comments: 52 years old male admitted on 04/12/18 for alcohol withdrawal stabilization completed detox regimen [facility] - Physical Exam Results Vital Signs: Vital Signs Temperature 97.8 F 04/17/18 09:26 Pulse Rate 78 04/17/18 09:26 Respiratory Rate 18 04/17/18 09:26 Blood Pressure 115/67 04/17/18 09:26 O2 Sat by Pulse Oximetry (%) Pertinent Admission Physical Exam Findings: alcohol withdrawal sx Vital Signs Temperature 97.8 F 04/17/18 09:26 Pulse Rate 78 04/17/18 09:26 Respiratory Rate 18 04/17/18 09:26 Blood Pressure 115/67 04/17/18 09:26 O2 Sat by Pulse Oximetry (%) Laboratory Last Values WBC 3.8 K/mm3 (4.0-10.0) L 04/13/18 08:32 RBC 4.26 M/mm3 (4.00-5.60) 04/13/18 08:32 Hgb 10.3 GM/dL (11.7-16.9) L 04/13/18 08:32 Hct 32.0 % (35.4-49) L 04/13/18 08:32 MCV 75.2 fl (80-96) L 04/13/18 08:32 MCH 24.3 pg (25.7-33.7) L 04/13/18 08:32 MCHC 32.3 g/dl (32.0-35.9) 04/13/18 08:32 RDW 15.2 % (11.9-15.9) 04/13/18 08:32 Plt Count 242 K/MM3 (134-434) 04/13/18 08:32 MPV 8.7 fl (7.5-11.1) 04/13/18 08:32 Hypochromia 0 04/13/18 08:32 Polychromasia 0 04/13/18 08:32 Poikilocytosis 3+ 04/13/18 08:32 Anisocytosis 1+ 04/13/18 08:32 Microcytosis 1+ 04/13/18 08:32 Macrocytosis 0 04/13/18 08:32 Ovalocytes 3+ 04/13/18 08:32 Schistocytes 1+ 04/13/18 08:32 Sodium 144 mmol/L (136-145) 04/13/18 07:00 Potassium 3.9 mmol/L (3.5-5.1) 04/13/18 07:00 Chloride 108 mmol/L (98-107) H 04/13/18 07:00 Carbon Dioxide 29 mmol/L (21-32) 04/13/18 07:00 Anion Gap 6 MMOL/L (8-16) L 04/13/18 07:00 BUN 16 mg/dL (7-18) 04/13/18 07:00 Creatinine 1.2 mg/dL (0.55-1.3) 04/13/18 07:00 Creat Clearance w eGFR > 60 (>60) 04/13/18 07:00 Random Glucose 86 mg/dL (74-106) 04/13/18 07:00 Calcium 7.9 mg/dL (8.5-10.1) L 04/13/18 07:00 Total Bilirubin 0.3 mg/dL (0.2-1) 04/13/18 07:00 AST 25 U/L (15-37) 04/13/18 07:00 ALT 32 U/L (13-61) 04/13/18 07:00 Alkaline Phosphatase 74 U/L (45-117) 04/13/18 07:00 Total Protein 5.4 g/dl (6.4-8.2) L 04/13/18 07:00 Albumin 2.9 g/dl (3.4-5.0) L 04/13/18 07:00 RPR Titer Nonreactive (NONREACTIVE) 04/13/18 07:00 HIV 1&2 Antibody Screen Negative 04/13/18 07:00 HIV P24 Antigen Negative 04/13/18 07:00 lab noted low Ca++ - Treatment Hospital Course: Detox Protocol Followed, Detoxed Safely, Responded well, Discharged Condition Good, Rehab Referral Accepted Patient has Accepted [facility] Referral to: [facility] - Medication Discharge Medications: Ambulatory Orders Ferrous Sulfate [Feosol] 325 mg PO DAILY 04/12/18 Calcium 250Mg/Vit-D 125 Units [Oscal 250 mg+D -] 1 combo PO BID 04/17/18 - Diagnosis (1) Alcohol dependence with uncomplicated withdrawal Current Visit: Yes Status: Acute (2) Nicotine dependence Current Visit: Yes Status: Acute Qualifiers: Nicotine product type: cigarettes Substance use status: in withdrawal Qualified Code(s): F17.213 - Nicotine dependence, cigarettes, with withdrawal (3) Substance induced mood disorder Current Visit: Yes Status: Suspected (4) Hypocalcemia Current Visit: Yes Status: Chronic - AMA Did Patient Leave Against Medical Advice: No
[2018-04-17 13:16] VITALS: BP 114/70; PULSE 76; TEMP 97.6
== END 2018-04-17 14:30 | disposition other institution (70) | DRG 774 ==
LOC: YASAS 13:23 → Y6N 17:11 → Y3N 04-13 19:06
PROVIDERS: ADMIT Neuromusculoskeletal Medicine & OMM; ATTEND Neuromusculoskeletal Medicine & OMM
PROC: HZ2ZZZZ Detoxification Services for Substance Abuse Treatment (ICD-10-PCS; principal; 2018-04-12)
DX: F10.230 Alcohol dependence with withdrawal, uncomplicated (principal); F14.20 Cocaine dependence, uncomplicated; F17.213 Nicotine dependence, cigarettes, with withdrawal; F19.24 Other psychoactive substance dependence with psychoactive substance-induced mood disorder; E83.51 Hypocalcemia; D50.9 Iron deficiency anemia, unspecified; R76.11 Nonspecific reaction to tuberculin skin test without active tuberculosis; M25.512 Pain in left shoulder; Z59.0 Homelessness
CPT/HCPCS: 36415; 71046-TC-FY; 73030-TC-LT-FY; 80053; 85027; 86593; 87389

== ENCOUNTER 2018-04-17 14:59 | Inpatient (IN) | payer OTHER ==
--- NOTE | 2018-04-17 11:08 | HP ---
[facility] Rehab Assess/Revision - Admission History Admitted to Rehab from: [facility] Date of Admission to Rehab: 04/17/18 - Findings Detox History & Physical reviewed: Yes Concur with findings: Yes Comments/Additional Findings: transferred from detox to rehab admission as per protocol Inpatient Rehab Admission - Initial Determination Are CD services needed?: Yes Free of communicable disease: Yes Not in need of hospitalization: Yes - Rehab Admission Criteria Previous failed treatment: Yes Poor recovery environment: Yes Comorbidities: Yes Lacks judgement: No Patient is meeting Inpatient Rehab admission criteria:: Yes
[~2018-04-17 14:59] MED LIST: ACETAMINOPHEN 325 MG TABLET (FP) PO PRN; LOPERAMIDE HCL 2 MG CAPSULE PO PRN; MAG HYDROX/AL HYDROX/SIMETH 30 ML UNIT-DOSE CUP PO PRN; MAGNESIUM CITRATE 300 ML BOTTLE PO PRN; MAGNESIUM HYDROX 2400MG/30ML ORAL SUSPENSION 30 ML CUP PO PRN; MENTHOL/PHENOL 1 EACH UD MM PRN; NICOTINE 14 MG/24 HOURS TOPICAL PATCH TD PRN; NICOTINE POLACRILEX 2 MG GUM BUC PRN; P-EPHED 60MG/TRIPROLIDI 2.5MG TABLET PO PRN; guaiFENesin/D-METHORPHAN HB 10 ML UNIT-DOSE CUPS PO PRN
[2018-04-17] MEDS: CALCIUM 250MG/VIT-D 125 UNITS 1 COMBO TABLET PO SCH (21:54)
[2018-04-17] MEDS: THIAMINE HCL 100 MG TABLET (FP) PO SCH (21:54)
[2018-04-17] MEDS ORDERED: MELATONIN 5 MG TABLETS PO PRN (22:00)
[2018-04-17] MEDS ORDERED: CALCIUM 250MG/VIT-D 125 UNITS 1 COMBO TABLET PO SCH ×3 (22:00)
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
[2018-04-18] MEDS: IBUPROFEN 400 MG TABLET (FP) PO PRN (06:20)
--- NOTE | 2018-04-18 10:18 | PN ---
S Progress Note Note: PT IS A NEW PT ADMITTED TO REHAB FROM [facility] DETOX YESTERDAY. WANTS TO REVIEW HIS CHEST XRAY AND LEFT SHOULDER XRAY RESULTS DONE IN DETOX. REPORTS LEFT SHOULDER PAIN A REASON FOR THE XRAY. DENIES TRUAMA EXCEPT THAT HE EXERCISES. ALERT O X 3. IN NAD. Vital Signs - 24 hr 04/17/18 04/18/18 04/18/18 16:49 01:11 03:30 Temperature 98.2 F Pulse Rate 80 Respiratory 18 18 18 Rate Blood Pressure 104/59 L 04/18/18 07:02 Temperature 97.8 F Pulse Rate 63 Respiratory 18 Rate Blood Pressure 112/69 EXTREMITIES: ACTIVE ROM TO ALL. NORMAL FLEXION, EXTENSION AND HAND RAISE. NO SWELLINGS NOTED. PLAN: CXR RESULT NO EVIDENCE OF ACTIVE PULMONARY DISEASE LEFT SHOULDER XRAY:NO PATHOLOGY;RECOMMENDATION TO FOLLOW UP WITH ORTHOPEDICS IF SX PERSISTS. COPIES OF BOTH XRAY GIVEN TO PATIENT FOR F/U WITH HIS PCP FOR FUTURE MEDICAL MANAGEMENT. ANALGESIC BALM DIRECTED MOTRIN PRN
[2018-04-18] MEDS: CALCIUM 250MG/VIT-D 125 UNITS 1 COMBO TABLET PO SCH ×2 (10:34→21:53)
[2018-04-18] MEDS: PRENATAL VITAMINS W/ FOLIC ACID TABLET (FP) PO SCH (10:34)
[2018-04-18] MEDS: METHYL SALICYLATE/MENTHOL OINT 30 GM TUBE TP SCH ×2 (14:39→21:53)
[2018-04-18] MEDS: THIAMINE HCL 100 MG TABLET (FP) PO SCH (21:53)
[2018-04-19] MEDS: METHYL SALICYLATE/MENTHOL OINT 30 GM TUBE TP SCH ×2 (10:48→21:41)
[2018-04-19] MEDS: PRENATAL VITAMINS W/ FOLIC ACID TABLET (FP) PO SCH (10:48)
[2018-04-19] MEDS: CALCIUM 250MG/VIT-D 125 UNITS 1 COMBO TABLET PO SCH ×2 (10:48→21:41)
[2018-04-19] MEDS: IBUPROFEN 400 MG TABLET (FP) PO PRN ×2 (10:49→21:42)
[2018-04-19] MEDS: THIAMINE HCL 100 MG TABLET (FP) PO SCH (21:41)
[2018-04-20] MEDS: IBUPROFEN 400 MG TABLET (FP) PO PRN ×2 (06:50→22:13)
[2018-04-20] MEDS: CALCIUM 250MG/VIT-D 125 UNITS 1 COMBO TABLET PO SCH ×2 (10:32→22:13)
[2018-04-20] MEDS: METHYL SALICYLATE/MENTHOL OINT 30 GM TUBE TP SCH ×2 (10:32→22:40)
[2018-04-20] MEDS: PRENATAL VITAMINS W/ FOLIC ACID TABLET (FP) PO SCH (10:32)
[2018-04-20] MEDS ORDERED: PATIENT'S OWN MEDICATION (NON-FORMULARY) (Ferrous Sulfate [Feosol] 325 MG) PO SCH (15:45)
[2018-04-20] MEDS: FERROUS SO4 325 MG TABLET (FP) PO SCH (16:13)
[2018-04-20] MEDS: THIAMINE HCL 100 MG TABLET (FP) PO SCH (22:13)
[2018-04-21] MEDS: PRENATAL VITAMINS W/ FOLIC ACID TABLET (FP) PO SCH (10:39)
[2018-04-21] MEDS: METHYL SALICYLATE/MENTHOL OINT 30 GM TUBE TP SCH ×2 (10:39→21:45)
[2018-04-21] MEDS: FERROUS SO4 325 MG TABLET (FP) PO SCH (10:39)
[2018-04-21] MEDS: CALCIUM 250MG/VIT-D 125 UNITS 1 COMBO TABLET PO SCH ×2 (10:39→21:44)
[2018-04-21] MEDS: THIAMINE HCL 100 MG TABLET (FP) PO SCH (21:44)
[2018-04-21] MEDS: IBUPROFEN 400 MG TABLET (FP) PO PRN (21:44)
[2018-04-22] MEDS: PRENATAL VITAMINS W/ FOLIC ACID TABLET (FP) PO SCH (10:19)
[2018-04-22] MEDS: FERROUS SO4 325 MG TABLET (FP) PO SCH (10:19)
[2018-04-22] MEDS: CALCIUM 250MG/VIT-D 125 UNITS 1 COMBO TABLET PO SCH ×2 (10:20→21:42)
[2018-04-22] MEDS: IBUPROFEN 400 MG TABLET (FP) PO PRN (10:20)
[2018-04-22] MEDS: METHYL SALICYLATE/MENTHOL OINT 30 GM TUBE TP SCH ×2 (10:22→21:43)
[2018-04-22] MEDS: THIAMINE HCL 100 MG TABLET (FP) PO SCH (21:42)
[2018-04-23] MEDS: FERROUS SO4 325 MG TABLET (FP) PO SCH (10:58)
[2018-04-23] MEDS: CALCIUM 250MG/VIT-D 125 UNITS 1 COMBO TABLET PO SCH ×2 (10:58→21:51)
[2018-04-23] MEDS: PRENATAL VITAMINS W/ FOLIC ACID TABLET (FP) PO SCH (10:58)
[2018-04-23] MEDS: IBUPROFEN 400 MG TABLET (FP) PO PRN ×2 (10:59→21:51)
[2018-04-23] MEDS: METHYL SALICYLATE/MENTHOL OINT 30 GM TUBE TP SCH ×2 (11:00→21:53)
[2018-04-23] MEDS: THIAMINE HCL 100 MG TABLET (FP) PO SCH (21:51)
[2018-04-24] MEDS: CALCIUM 250MG/VIT-D 125 UNITS 1 COMBO TABLET PO SCH ×2 (11:15→21:37)
[2018-04-24] MEDS: PRENATAL VITAMINS W/ FOLIC ACID TABLET (FP) PO SCH (11:15)
[2018-04-24] MEDS: FERROUS SO4 325 MG TABLET (FP) PO SCH (11:16)
[2018-04-24] MEDS: METHYL SALICYLATE/MENTHOL OINT 30 GM TUBE TP SCH ×2 (11:16→21:37)
[2018-04-24] MEDS: THIAMINE HCL 100 MG TABLET (FP) PO SCH (21:37)
[2018-04-25] MEDS: PRENATAL VITAMINS W/ FOLIC ACID TABLET (FP) PO SCH (10:53)
[2018-04-25] MEDS: FERROUS SO4 325 MG TABLET (FP) PO SCH (10:54)
[2018-04-25] MEDS: CALCIUM 250MG/VIT-D 125 UNITS 1 COMBO TABLET PO SCH ×2 (10:54→21:42)
[2018-04-25] MEDS: METHYL SALICYLATE/MENTHOL OINT 30 GM TUBE TP SCH ×2 (10:54→21:42)
[2018-04-25] MEDS: IBUPROFEN 400 MG TABLET (FP) PO PRN (10:54)
[2018-04-25] MEDS: THIAMINE HCL 100 MG TABLET (FP) PO SCH (21:42)
[2018-04-26] MEDS: FERROUS SO4 325 MG TABLET (FP) PO SCH (10:20)
[2018-04-26] MEDS: CALCIUM 250MG/VIT-D 125 UNITS 1 COMBO TABLET PO SCH ×2 (10:20→21:41)
[2018-04-26] MEDS: PRENATAL VITAMINS W/ FOLIC ACID TABLET (FP) PO SCH (10:20)
[2018-04-26] MEDS: IBUPROFEN 400 MG TABLET (FP) PO PRN ×2 (10:20→21:41)
[2018-04-26] MEDS: METHYL SALICYLATE/MENTHOL OINT 30 GM TUBE TP SCH ×2 (10:21→21:43)
[2018-04-26] MEDS: THIAMINE HCL 100 MG TABLET (FP) PO SCH (21:41)
[2018-04-27] MEDS: CALCIUM 250MG/VIT-D 125 UNITS 1 COMBO TABLET PO SCH ×2 (10:22→21:56)
[2018-04-27] MEDS: FERROUS SO4 325 MG TABLET (FP) PO SCH (10:22)
[2018-04-27] MEDS: PRENATAL VITAMINS W/ FOLIC ACID TABLET (FP) PO SCH (10:22)
[2018-04-27] MEDS: METHYL SALICYLATE/MENTHOL OINT 30 GM TUBE TP SCH ×2 (10:22→21:42)
[2018-04-27] MEDS: IBUPROFEN 400 MG TABLET (FP) PO PRN (21:41)
[2018-04-27] MEDS: THIAMINE HCL 100 MG TABLET (FP) PO SCH (21:41)
[2018-04-28] MEDS: METHYL SALICYLATE/MENTHOL OINT 30 GM TUBE TP SCH ×2 (10:24→21:37)
[2018-04-28] MEDS: CALCIUM 250MG/VIT-D 125 UNITS 1 COMBO TABLET PO SCH ×2 (10:24→21:36)
[2018-04-28] MEDS: PRENATAL VITAMINS W/ FOLIC ACID TABLET (FP) PO SCH (10:24)
[2018-04-28] MEDS: FERROUS SO4 325 MG TABLET (FP) PO SCH (10:24)
[2018-04-28] MEDS: IBUPROFEN 400 MG TABLET (FP) PO PRN ×2 (10:25→21:36)
[2018-04-28] MEDS: THIAMINE HCL 100 MG TABLET (FP) PO SCH (21:36)
[2018-04-29] MEDS: METHYL SALICYLATE/MENTHOL OINT 30 GM TUBE TP SCH ×2 (09:58→21:35)
[2018-04-29] MEDS: PRENATAL VITAMINS W/ FOLIC ACID TABLET (FP) PO SCH (09:58)
[2018-04-29] MEDS: FERROUS SO4 325 MG TABLET (FP) PO SCH (09:58)
[2018-04-29] MEDS: CALCIUM 250MG/VIT-D 125 UNITS 1 COMBO TABLET PO SCH ×2 (09:58→21:35)
[2018-04-29] MEDS: IBUPROFEN 400 MG TABLET (FP) PO PRN (09:59)
[2018-04-29 10:25] LABS: ALBUMIN 3.8 g/dl (3.4-5.0); ALK PHOS 80 U/L (45-117); ANION GAP 7 MMOL/L (8-16); BILIRUBIN,TOTAL 0.5 mg/dL (0.2-1); BLOOD UREA NITROGEN 22 mg/dL (7-18); CHLORIDE 105 mmol/L (98-107); CO2 28 mmol/L (21-32); CREATININE 1.2 mg/dL (0.55-1.3); GLUCOSE,RANDOM 120 mg/dL (74-106); POTASSIUM 4.2 mmol/L (3.5-5.1); SGOT/AST 28 U/L (15-37); SGPT/ALT 55 U/L (13-61); SODIUM 140 mmol/L (136-145); TOT PROT 6.8 g/dl (6.4-8.2)
[2018-04-29 10:39] LABS: HEMOGLOBIN 11.2 GM/dL (11.7-16.9); MCH 25.9 pg (25.7-33.7); MEAN CELL VOLUME 76.1 fl (80-96); PLATELET COUNT 261 K/MM3 (134-434); RBC 4.34 M/mm3 (4.00-5.60); RDW 16.1 % (11.9-15.9); WHITE BLOOD COUNT 4.4 K/mm3 (4.0-10.0)
[2018-04-29] MEDS: THIAMINE HCL 100 MG TABLET (FP) PO SCH (21:35)
[2018-04-30] MEDS: CALCIUM 250MG/VIT-D 125 UNITS 1 COMBO TABLET PO SCH ×2 (10:24→21:37)
[2018-04-30] MEDS: METHYL SALICYLATE/MENTHOL OINT 30 GM TUBE TP SCH ×2 (10:24→21:38)
[2018-04-30] MEDS: PRENATAL VITAMINS W/ FOLIC ACID TABLET (FP) PO SCH (10:24)
[2018-04-30] MEDS: IBUPROFEN 400 MG TABLET (FP) PO PRN ×2 (10:24→21:37)
[2018-04-30] MEDS: FERROUS SO4 325 MG TABLET (FP) PO SCH (10:24)
[2018-04-30] MEDS: THIAMINE HCL 100 MG TABLET (FP) PO SCH (21:37)
[2018-05-01 06:58] VITALS: BP 129/71; PULSE 55; TEMP 98.4
[2018-05-01] MEDS: PRENATAL VITAMINS W/ FOLIC ACID TABLET (FP) PO SCH (09:57)
[2018-05-01] MEDS: METHYL SALICYLATE/MENTHOL OINT 30 GM TUBE TP SCH (09:57)
[2018-05-01] MEDS: FERROUS SO4 325 MG TABLET (FP) PO SCH (09:57)
[2018-05-01] MEDS: CALCIUM 250MG/VIT-D 125 UNITS 1 COMBO TABLET PO SCH (09:57)
--- NOTE | 2018-05-01 14:25 | PN ---
S Progress Note Note: REHAB DISCHARGE NOTE: PT COMPLETED REHAB TODAY AND REFERRED TO [facility] FOR CD TREATMENT. ALERT O X 3. Vital Signs - 24 hr 05/01/18 05/01/18 05/01/18 00:30 03:30 06:58 Temperature 98.4 F Pulse Rate 55 L Respiratory 18 18 18 Rate Blood Pressure 129/71 Laboratory Tests 04/29/18 04/29/18 07:50 07:50 WBC 4.4 RBC 4.34 Hgb 11.2 L Hct 33.0 L MCV 76.1 L MCH 25.9 MCHC 34.0 RDW 16.1 H Plt Count 261 MPV 9.0 Sodium 140 Potassium 4.2 Chloride 105 Carbon Dioxide 28 Anion Gap 7 L BUN 22 H Creatinine 1.2 Creat Clearance w eGFR > 60 Random Glucose 120 H Calcium 9.0 Total Bilirubin 0.5 AST 28 ALT 55 Alkaline Phosphatase 80 Total Protein 6.8 Albumin 3.8 MEDICALLY STABLE PLAN:FOLLOW UP AT [facility] CD TREATMENT RECOMMENDED.
== END 2018-05-01 10:05 | disposition home or self-care (01) | DRG 772 ==
LOC: YASAS 14:59 → Y5N 15:00
PROVIDERS: ADMIT Psychiatry & Neurology Psychiatry; ATTEND Psychiatry & Neurology Psychiatry
PROC: HZ42ZZZ Group Counseling for Substance Abuse Treatment, Cognitive-Behavioral (ICD-10-PCS; principal; 2018-04-17)
DX: F10.20 Alcohol dependence, uncomplicated (principal); F14.20 Cocaine dependence, uncomplicated; F17.213 Nicotine dependence, cigarettes, with withdrawal; F32.9 Major depressive disorder, single episode, unspecified; F19.24 Other psychoactive substance dependence with psychoactive substance-induced mood disorder; D64.9 Anemia, unspecified; M25.512 Pain in left shoulder; M54.5 Low back pain; G89.29 Other chronic pain; R76.11 Nonspecific reaction to tuberculin skin test without active tuberculosis; Z87.438 Personal history of other diseases of male genital organs; Z59.0 Homelessness
CPT/HCPCS: 36415; 80053; 85027